=== PATIENT | female | born 1955 | race Caucasian/White ===

== ENCOUNTER 2018-07-22 02:58 | Inpatient (IN) ==
[2018-07-22] MEDS ORDERED: Nitroglycerin Drip Premix 50 MG/250 ML BOTTLE IV.CONT PRN (03:11)
[2018-07-22] MEDS ORDERED: Nitroglycerin Drip Premix 50 MG/250 ML BOTTLE ONE (03:12)
[2018-07-22 03:52] LABS: Baso # (Auto) 0.1 th/mm3 (0.0-0.2); Baso % (Auto) 0.9 % (0.0-2.0); Eos # (Auto) 0.3 th/mm3 (0.0-0.4); Eos % (Auto) 3.6 % (0.0-4.0); Hematocrit 37.9 % (35.0-46.0); Hemoglobin 12.6 gm/dL (11.6-15.3); Lymph # (Auto) 2.6 th/mm3 (1.0-4.8); Lymph % (Auto) 27.6 % (9.0-44.0); Mean Corpuscular HGB Conc 33.3 % (32.0-36.0); Mean Corpuscular Hemoglobin 27.5 pg (27.0-34.0); Mean Corpuscular Volume 82.8 fL (80.0-100.0); Mono # (Auto) 0.8 th/mm3 (0.0-0.9); Mono % (Auto) 8.2 % (0.0-8.0); Neut # (Auto) 5.7 th/mm3 (1.8-7.7); Neut % (Auto) 59.7 % (16.0-70.0); Platelet Count 267 th/mm3 (150-450); Red Blood Count 4.58 mil/mm3 (4.00-5.30); Red Cell Distribution Width 16.1 % (11.6-17.2); White Blood Count 9.5 th/mm3 (4.0-11.0)
--- NOTE | 2018-07-22 04:05 | XR ---
EXAM DATE: 07/22/2018 3:30 AM EDT AGE/SEX: 63 years / Female INDICATIONS: Difficulty breathing today. CLINICAL DATA: This is the patient's initial encounter. Patient reports that signs and symptoms have been present for 1 day and indicates a pain score of 0/10. MEDICAL/SURGICAL HISTORY: None. . Stents COMPARISON: [facility] [place], CHEST PA & LAT, 11/18/2015. . FINDINGS: Frontal view of the chest shows interval development of some interstitial prominence and haziness. Pe rsistent cardiomegaly. No confluent infiltrate or effusion. Spinal stimulator projects over the junct ion of the mid and lower dorsal spine. Osseous structures are otherwise intact CONCLUSION: Spectrum of findings characteristic of some degree of vascular congestion or volume overload. No conf luent infiltrate. Electronically signed by: Yonatan Mulligan MD 07/22/2018 4:03 AM EDT
--- NOTE | 2018-07-22 04:08 | ED ---
HPI General Chief Complaint: Shortness of Breath/Dyspnea Stated Complaint: Diff breathing Time Seen by Provider: 07/22/18 03:11 Source: patient and family Mode of arrival: wheelchair Limitations: other (Acute respiratory failure) History of Present Illness Patient awoke this morning from bed with severe shortness of breath. In route she feels that her respiratory distress worsened. She has chest tightness throughout her entire chest. She has been coughing for weeks and this cough is productive of yellow phlegm. She denies having a history of heart failure. History limited by patient's severe respiratory distress. MD Complaint: shortness of breath, cough and chest pain Onset (ago): hour(s) Context: recent illness Severity: severe Relieving factors: oxygen and upright position Associated symptoms: cough Related Data Home oxygen amount: other (BiPAP) Allergies Allergy/AdvReac Type Severity Reaction Status Date / Time diphenhydramine Allergy Severe RESP Unverified 07/22/18 03:04 DISTRESS penicillin G Allergy Severe DYSPNEA, Unverified 07/22/18 03:04 EDEMA lovastatin Allergy Intermediate MUSCLE Unverified 07/22/18 03:04 PROBLEMS diatrizoate meglumine Allergy Mild Hives Unverified 07/22/18 03:04 gadobenic acid Allergy Mild Hives Unverified 07/22/18 03:04 gadodiamide Allergy Mild Hives Unverified 07/22/18 03:04 gadoteridol Allergy Mild Hives Unverified 07/22/18 03:04 iodixanol Allergy Mild Hives Unverified 07/22/18 03:04 iohexol Allergy Mild Hives Unverified 07/22/18 03:04 STATINS AdvReac Intermediate MUSCLE Uncoded 07/22/18 03:04 ACHES Review of Systems ROS Unobtainable ROS Unobtainable: other (Acute respiratory failure) [facility] Medical History Medical History Angioma (Acute) Diabetes (Acute) Hypertension (Acute) Hypothyroid (Acute) Surgical History Surgical History H/O heart artery stent (Acute) H/O: knee surgery (Acute) Social History Social History Substance History: No History of Abuse Smoking Status: Former smoker How Often Do You Have a Drink Containing Alcohol: Monthly or less Recent Travel in [facility] within the Last 8 Weeks: No Recent Out of Country Travel within the Last 8 Weeks: No Immunization History Tetanus Immunization: Unsure Exam Narrative Exam Narrative: GENERAL: 63-year-old female sitting upright in wheelchair in acute respiratory distress. SKIN: Slightly moist to touch but warm. HEAD: Atraumatic. Normocephalic. EYES: Pupils equal and round. No scleral icterus. No injection or drainage. ENT: No nasal bleeding or discharge. Mucous membranes pink and moist. NECK: Trachea midline. No stridor CARDIOVASCULAR: Tachycardia, normal rhythm rhythm. No murmur appreciated. RESPIRATORY: Accessory muscle use and tripoding observed. Course Rales throughout both lung garcia. GASTROINTESTINAL: Abdomen soft, non-tender, nondistended. Hepatic and splenic margins not palpable. MUSCULOSKELETAL: No obvious deformities. No clubbing. No cyanosis. No significant lower extremity edema. NEUROLOGICAL: Awake and alert. No obvious cranial nerve deficits. Motor grossly within normal limits. Normal speech. PSYCHIATRIC: Agitated mood and anxious affect. Related to patient's respiratory distress. Course Reevaluation(s) Reevaluation #1: Patient much improved after treatment with BiPAP and nitroglycerin drip. De La Cruz catheter inserted for strict maintenance of intake and output. at bedside with patient at this time. Updated patient and on plan. Awaiting lab results for admission. Time: 04:05 Consultations Consultation #1: Spoke with Dr. Gould regarding the patient's case. She will come the ED in order to evaluate patient and admit her for further evaluation and treatment. Initial Documented Vital Signs Temperature 96.8 F L 07/22/18 03:05 Pulse Rate 101 H 07/22/18 03:05 Respiratory Rate 32 H 07/22/18 03:05 Blood Pressure 277/137 H 07/22/18 03:05 Pulse Oximetry 83 L 07/22/18 03:05 Last Documented Vital Signs Temperature 96.8 F L 07/22/18 03:05 Pulse Rate 88 07/22/18 03:51 Respiratory Rate 20 07/22/18 03:51 Blood Pressure 264/137 H 07/22/18 03:51 Pulse Oximetry 98 07/22/18 03:51 Critical Care Time Critical Care Time: Yes Total Critical Care Time: 50 Attestation: This time was spent either directly patient's bedside directing care and evaluating patient or discussing with consultants were entering orders and reviewing. This special care was necessary in order to treat the patient's acute respiratory failure. Without focused in intensive evaluation and care patient's condition was likely to deteriorate. Medical Decision Making MDM Narrative Medical decision making narrative: 63-year-old female presenting in acute respiratory distress. Per discussion with and review of medical records she has no prior history of heart failure or renal failure. Episode seems most consistent with acute exacerbation of heart failure. Will consider PE less likely an acute CHF; patient is also allergic to IV contrast dye and therefore be difficult to evaluate for PE. Feel the pneumonia is less likely given the bilateral pulmonary edema observed on the patient's chest x-ray. Initiated treatment immediately with BiPAP and intravenous nitroglycerin drip. Will observe patient closely in the ED. Plan for admission to ICU for further treatment and workup. Also ordered patient initial dose 40 mg IV Lasix for diuresis. Will patient was in her initially agitated state due to acute respiratory distress I requested the nurses draw ketamine but we ended up not requiring this medication. Medical Screen Exam Complete: Yes Emergency Medical Condition: Yes Differential Diagnosis Differential Diagnosis: Acute CHF versus acute renal failure versus volume overload versus inferior wall IA versus diffuse metastatic disease. Lab Data Result diagrams: 07/22/18 03:40 07/22/18 03:40 Lab Results 07/22/18 07/22/18 07/22/18 Range/Units 03:40 03:40 03:40 WBC 9.5 (4.0-11.0) th/mm3 RBC 4.58 (4.00-5.30) mil/mm3 Hgb 12.6 (11.6-15.3) gm/dL Hct 37.9 (35.0-46.0) % MCV 82.8 (80.0-100.0) fL MCH 27.5 (27.0-34.0) pg MCHC 33.3 (32.0-36.0) % RDW 16.1 (11.6-17.2) % Plt Count 267 (150-450) th/mm3 MPV 9.0 (7.0-11.0) fL Neut % (Auto) 59.7 (16.0-70.0) % Lymph % (Auto) 27.6 (9.0-44.0) % Travis % (Auto) 8.2 H (0.0-8.0) % Eos % (Auto) 3.6 (0.0-4.0) % Baso % (Auto) 0.9 (0.0-2.0) % Neut # (Auto) 5.7 (1.8-7.7) th/mm3 Lymph # (Auto) 2.6 (1.0-4.8) th/mm3 Travis # (Auto) 0.8 (0.0-0.9) th/mm3 Eos # (Auto) 0.3 (0.0-0.4) th/mm3 Baso # (Auto) 0.1 (0.0-0.2) th/mm3 WBC Differential . Differential Comment Auto diff final PT 10.3 (9.8-11.6) sec INR 1.0 Ratio Puncture Site Patient Temperature O2 Saturation (90-100) % ABG pH (7.380-7.420) ABG pCO2 (38-42) mmHg ABG pO2 (61-120) mmHg ABG HCO3 (22-26) mmol/L ABG O2 Content (12.0-20.0) Vol % ABG Base Excess (-2-2) mmol/L ABG Methemoglobin (0-2) % Evert Test Hemoglobin (12.0-16.0) G/DL Carboxyhemoglobin (0-4) % O2 Delivery Device Vent Setting Inspired O2 % Critical Value Sodium 140 (136-145) meq/L Potassium 3.9 (3.5-5.1) meq/L Chloride 105 (98-107) meq/L Carbon Dioxide 26.4 (21.0-32.0) meq/L Anion Gap 9 (5-15) meq/L BUN 20 H (7-18) mg/dL Creatinine 0.94 (0.50-1.00) mg/dL Estimated GFR 60 L (>89) mL/min Random Glucose 217 H (74-106) mg/dL Calcium 8.7 (8.5-10.1) mg/dL Magnesium 1.8 (1.5-2.5) mg/dL Total Bilirubin 0.5 (0.2-1.0) mg/dL AST 25 (15-37) U/L ALT 17 (10-53) U/L Alkaline Phosphatase 118 H (45-117) U/L Troponin I Less than 0.02 L (0.02-0.05) ng/mL B-Natriuretic Peptide (0-100) pg/mL Total Protein 7.8 (6.4-8.2) g/dL Albumin 3.4 (3.4-5.0) g/dL 07/22/18 07/22/18 Range/Units 03:40 03:50 WBC (4.0-11.0) th/mm3 RBC (4.00-5.30) mil/mm3 Hgb (11.6-15.3) gm/dL Hct (35.0-46.0) % MCV (80.0-100.0) fL MCH (27.0-34.0) pg MCHC (32.0-36.0) % RDW (11.6-17.2) % Plt Count (150-450) th/mm3 MPV (7.0-11.0) fL Neut % (Auto) (16.0-70.0) % Lymph % (Auto) (9.0-44.0) % Travis % (Auto) (0.0-8.0) % Eos % (Auto) (0.0-4.0) % Baso % (Auto) (0.0-2.0) % Neut # (Auto) (1.8-7.7) th/mm3 Lymph # (Auto) (1.0-4.8) th/mm3 Travis # (Auto) (0.0-0.9) th/mm3 Eos # (Auto) (0.0-0.4) th/mm3 Baso # (Auto) (0.0-0.2) th/mm3 WBC Differential Differential Comment PT (9.8-11.6) sec INR Ratio Puncture Site Left radial Patient Temperature 98.6 O2 Saturation 92 (90-100) % ABG pH 7.36 L (7.380-7.420) ABG pCO2 43 H (38-42) mmHg ABG pO2 74 (61-120) mmHg ABG HCO3 23 (22-26) mmol/L ABG O2 Content 16.2 (12.0-20.0) Vol % ABG Base Excess -1.2 (-2-2) mmol/L ABG Methemoglobin 0.7 (0-2) % Evert Test Present Hemoglobin 12.5 (12.0-16.0) G/DL Carboxyhemoglobin 1.2 (0-4) % O2 Delivery Device Bipap Vent Setting Ipap=12 epap=6 Inspired O2 35 % Critical Value No Sodium (136-145) meq/L Potassium (3.5-5.1) meq/L Chloride (98-107) meq/L Carbon Dioxide (21.0-32.0) meq/L Anion Gap (5-15) meq/L BUN (7-18) mg/dL Creatinine (0.50-1.00) mg/dL Estimated GFR (>89) mL/min Random Glucose (74-106) mg/dL Calcium (8.5-10.1) mg/dL Magnesium (1.5-2.5) mg/dL Total Bilirubin (0.2-1.0) mg/dL AST (15-37) U/L ALT (10-53) U/L Alkaline Phosphatase (45-117) U/L Troponin I (0.02-0.05) ng/mL B-Natriuretic Peptide 325 H (0-100) pg/mL Total Protein (6.4-8.2) g/dL Albumin (3.4-5.0) g/dL Imaging Data Radiologist's impression: Chest X-Ray 07/22/18 03:14 CONCLUSION: Spectrum of findings characteristic of some degree of vascular congestion or volume overload. No confluent infiltrate. ECG Data Attestation: I personally reviewed and interpreted this ECG as follows: Interpretation: Rate 93 normal sinus rhythm with regular P waves, QRS consistent with LVH, some ST depression in V5 and V6, as well as aVF lead to, no significant ST elevation, not consistent with STEMI. Discharge Plan Discharge Disposition Patient Disposition: 30 Still Patient Discharge Condition Condition: Serious Discharge Details Diagnosis: Acute CHF, Respiratory failure, Hypertensive emergency Physicians Team ED Provider: Eliot Hernandez Discharge Interventions Interventions: Vital Signs Last Done: 07/22/18 04:35 Status ED Status: With Doctor
[2018-07-22 04:10] LABS: Alkaline Phosphatase 118 U/L (45-117); Prothrombin Time 10.3 sec (9.8-11.6); Total Protein 7.8 g/dL (6.4-8.2)
[2018-07-22 04:10] LABS: ABG Base Excess -1.2 mmol/L (-2-2); ABG PCO2 43 mmHg (38-42); ABG PO2 74 mmHg (61-120)
[2018-07-22 04:12] LABS: Alanine Aminotransferase 17 U/L (10-53); Albumin 3.4 g/dL (3.4-5.0); Anion Gap 9 meq/L (5-15); Aspartate Aminotransferase 25 U/L (15-37); Blood Urea Nitrogen 20 mg/dL (7-18); Calcium 8.7 mg/dL (8.5-10.1); Carbon Dioxide 26.4 meq/L (21.0-32.0); Chloride 105 meq/L (98-107); Glomerular Filtration Rate 60 mL/min (>89); Glucose,Random 217 mg/dL (74-106); Magnesium 1.8 mg/dL (1.5-2.5); Potassium 3.9 meq/L (3.5-5.1); Sodium 140 meq/L (136-145)
[2018-07-22] MEDS ORDERED: Lisinopril 10 MG Tablet PO SCH (05:15)
--- NOTE | 2018-07-22 05:17 | P.HPCC ---
History of Present Illness Service: Critical care medicine Primary Care Physician: Afshin Rainey MD, PhD Chief Complaint: SOB History of Present Illness: 63-year-old female with past medical history of coronary artery disease with prior PTCA and stent Circ and RCA 05/11/14, poorly controlled DM, HTN, HLD, hypothyroidism, prior breast cancer status post lumpectomy and radiation 2005, prior meningioma resection 1984, who presented to [facility] emergency department with shortness of breath. She states she awoke from sleep with throbbing headache, top of head without neck pain, stiffness or visual changes. She took two ibuprofen. She states she then became short of breath with associated chest pressure in her mid chest ( nonradiating, nonpleuritic, similar quality to when she had prior stents), nausea, diaphoresis. She was brought by private vehicle and arrived with sats 82% on room air, bilateral rales, tachypneic and in obvious distress. She was placed on BiPAP 12/5 35%. She was started on nitroglycerin drip which is currently running at 50 mcg/min with BP 220s/90s. CXR demonstrated cardiomegaly and vascular congestion. She was given Lasix 40 mg IV and has diuresed 600 mL, states SOB is better and will trial off Bipap. She initially said her headache was gone, now says it is returning somewhat. She has intermittently had coughing every few months and has been prescribed antibiotics from her primary. No prior diagnosis of CHF or COPD, no prior PFTs. She states she had some cough this evening, productive of clear/white frothy sputum. No fever. Troponin negative. EKG no STEMI. No cardiac workup in many years and no reported history of CHF. She has noticed leg swelling for about a week, has been taking lasix, also drinking about a gallon of water daily "to be healthy" after stopping soda. No travel. Inpatient Certification: I certify that the inpatient services were ordered in accordance with Medicare regulations governing the order. This includes certification that hospital inpatient services are reasonable and necessary and in the case of services not specified as inpatient-only under 42 CFR 419.22(n), that they are appropriately provided as inpatient services in accordance to with the 2-midnight benchmark under 43 CFR 412.3(e) Review of Systems All other systems reviewed negative except as stated in HPI Allergic/Immunologic: Denies hives, Denies itchy eyes PMFSH - History History Provided By: Patient - Medical History Medical History: Medical History (Last Updated 07/22/18 @ 06:07 by Naa Gould MD) Benign meningioma of brain Breast cancer Diabetes H/O: hysterectomy Hypertension Hypothyroid Mass of vulva Obesity Spinal cord stimulator status - Surgical History Surgical History: Surgical History (Last Updated 07/22/18 @ 06:06 by Naa Gould MD) H/O arthroscopy of right knee H/O heart artery stent H/O tubal ligation H/O: knee surgery History of arthroplasty of right knee Hx of appendectomy Hx of thyroidectomy S/P laminectomy with spinal fusion S/P lumpectomy, right breast - Family History Family History: Family History (Last Updated 07/22/18 @ 06:07 by Naa Gould MD) Father CAD (coronary artery disease) - Tobacco History Smoking Status: Former smoker Tobacco Type: Cigarettes Packs Per Day: 0.5 Years Smoked: 20 Smoking End Date: - Alcohol History How Often Do You Have a Drink Containing Alcohol: Monthly or less - Substance Use History Substance History: No History of Abuse - Travel History Recent Travel in the [place] Within the Last 8 Weeks: No Recent Travel Out of the Country Within the Last 8 Weeks: No - Immunization History Tetanus Immunization: Unsure Medications and Allergies Active Medications: Active Medications Atenolol (Tenormin) 100 mg PO DAILY ALEXANDRA Furosemide (Lasix Inj) 40 mg IV.PUSH DAILY ALEXANDRA Nitroglycerin/Dextrose (Nitroglycerin Drip Premix) 50 mg in 250 mls @ 0 mls/hr IV.CONT TITRATE PRN; Protocol PRN Reason: Per Protocol Last Titration: 07/22/18 05:06 Dose: 60 mcg/min, 18 mls/hr Lisinopril (Prinivil) 10 mg PO BID ALEXANDRA Sodium Chloride (Ns Flush) 2 ml IV.FLUSH PRN PRN PRN Reason: FLUSH AFTER USING IV ACCESS Vitamin D (Vitamin D3) 2,000 unit PO DAILY ALEXANDRA Allergies Allergy/AdvReac Type Severity Reaction Status Date / Time diphenhydramine Allergy Severe RESP Verified 07/23/18 12:33 DISTRESS penicillin G Allergy Severe DYSPNEA, Verified 07/23/18 12:33 EDEMA lovastatin Allergy Intermediate MUSCLE Verified 07/23/18 12:33 PROBLEMS diatrizoate meglumine Allergy Mild Hives Verified 07/23/18 12:33 gadobenic acid Allergy Mild Hives Verified 07/23/18 12:33 gadodiamide Allergy Mild Hives Verified 07/23/18 12:33 gadoteridol Allergy Mild Hives Verified 07/23/18 12:33 iodixanol Allergy Mild Hives Verified 07/23/18 12:33 iohexol Allergy Mild Hives Verified 07/23/18 12:33 STATINS AdvReac Intermediate MUSCLE Uncoded 07/23/18 12:33 ACHES Home Medications Medication Instructions Recorded Confirmed Type atenolol 100 mg PO DAILY 07/22/18 07/22/18 History cholecalciferol (vitamin D3) 2,000 unit PO DAILY 07/22/18 07/22/18 History [Vitamin D3] aspirin 81 mg PO DAILY 07/23/18 07/23/18 History furosemide 20 mg PO DAILY 07/23/18 07/23/18 History glimepiride 4 mg PO BID 07/23/18 07/23/18 History levothyroxine 175 mcg PO DAILY 07/23/18 07/23/18 History lisinopril 20 mg PO BID 07/23/18 07/23/18 History Results - Labs CBC & Chem 7: 07/23/18 03:00 07/25/18 06:03 Labs: Short CBC 07/22/18 Range/Units 03:40 WBC 9.5 (4.0-11.0) th/mm3 Hgb 12.6 (11.6-15.3) gm/dL Hct 37.9 (35.0-46.0) % Plt Count 267 (150-450) th/mm3 BMP 07/22/18 03:40 Sodium 140 Potassium 3.9 Chloride 105 Carbon Dioxide 26.4 BUN 20 H Creatinine 0.94 Calcium 8.7 Cardiac Enzymes 07/22/18 Range/Units 03:40 Troponin I Less than 0.02 L (0.02-0.05) ng/mL Liver Function 07/22/18 Range/Units 03:40 Total Bilirubin 0.5 (0.2-1.0) mg/dL AST 25 (15-37) U/L ALT 17 (10-53) U/L Alkaline Phosphatase 118 H (45-117) U/L Albumin 3.4 (3.4-5.0) g/dL - Imaging Impressions Chest X-Ray 07/22/18 03:14 CONCLUSION: Spectrum of findings characteristic of some degree of vascular congestion or volume overload. No confluent infiltrate. Exam Vital signs: Vital Signs 07/22/18 03:05 07/22/18 03:20 07/22/18 03:22 Temperature 96.8 F L Pulse Rate 101 H 91 H Respiratory Rate 32 H 20 Blood Pressure 277/137 H 256/124 H Pulse Oximetry 83 L 97 98 07/22/18 03:46 07/22/18 03:51 07/22/18 04:35 Temperature Pulse Rate 88 69 Respiratory Rate 20 20 Blood Pressure 264/137 H 220/98 H Pulse Oximetry 98 98 07/22/18 05:00 07/22/18 05:04 07/22/18 05:08 Temperature Pulse Rate 78 Respiratory Rate 20 Blood Pressure 226/104 H Pulse Oximetry 98 97 Intake & Output 07/21/18 07/21/18 07/22/18 06:59 18:59 06:59 Weight 86.183 kg Narrative: GENERAL: Well-nourished, well-developed patient sitting up, alert, conversant on Bipap. SKIN: Warm and dry. HEAD: Atraumatic. Normocephalic. EYES: Pupils equal and round. No scleral icterus. No injection or drainage. ENT: Bipap mask in place. NECK: Trachea midline. Unable to appreciate JVD. CARDIOVASCULAR: Regular rate and rhythm, sinus rhythm on the monitor with rate in the 70s. No murmurs rubs or gallops. RESPIRATORY: Tachypneic, no accessory muscle use, bibasilar rales. No wheeze. GASTROINTESTINAL: Abdomen soft, non-tender, nondistended. Bowel sounds present hepatic and splenic margins not palpable. MUSCULOSKELETAL: Extremities without clubbing, cyanosis, ~trace edema LLE, 1+ RLE, no calf tenderness(patient states this is chronic and at baseline)/ NEUROLOGICAL: Awake and alert. No obvious cranial nerve deficits. Strength 5 out of 5. Sensation intact. No meningismus. Caprini VTE Risk Assessment Caprini VTE Risk Assessment: Moderate/High Risk (score >= 2) Caprini Risk Assessment Model: Point Value = 1 Point Value = 2 Point Value = 3 Point Value = 5 Age 41-60 Minor surgery BMI > 25 kg/m2 Swollen legs Varicose veins or History of unexplained or recurrent spontaneous Oral contraceptives or hormone replacement Sepsis (< 1 month) Serious lung disease, including pneumonia (< 1 month) Abnormal pulmonary function Acute myocardial infarction Congestive heart failure (< 1 month) History of inflammatory bowel disease Medical patient at bed rest Age 61-74 Arthroscopic surgery Major open surgery (> 45 min) Laparoscopic surgery (> 45 min) Malignancy Confined to bed (> 72 hours) Immobilizing plaster cast Central venous access Age >= 75 History of VTE Family history of VTE Factor V Leiden Prothrombin [id number] Lupus anticoagulant Anticardiolipin antibodies Elevated serum homocysteine Heparin-induced thrombocytopenia Other congenital or acquired thrombophilia Stroke (< 1 month) Elective arthroplasty Hip, pelvis, or leg fracture Acute spinal cord injury (< 1 month) Prophylaxis Regimen: Total Risk Factor Score Risk Level Prophylaxis Regimen 0-1 Low Early ambulation 2 Moderate Order ONE of the following: *Sequential Compression Device (SCD) *Heparin 5000 units SQ BID 3-4 Higher Order ONE of the following medications: *Heparin 5000 units SQ TID *Enoxaparin/Lovenox 40 mg SQ daily (WT < 150 kg, CrCl > 30 mL/min) *Enoxaparin/Lovenox 30 mg SQ daily (WT < 150 kg, CrCl > 10-29 mL/min) *Enoxaparin/Lovenox 30 mg SQ BID (WT < 150 kg, CrCl > 30 mL/min) AND/OR *Sequential Compression Device (SCD) 5 or more Highest Order ONE of the following medications: *Heparin 5000 units SQ TID (Preferred with Epidurals) *Enoxaparin/Lovenox 40 mg SQ daily (WT < 150 kg, CrCl > 30 mL/min) *Enoxaparin/Lovenox 30 mg SQ daily (WT < 150 kg, CrCl > 10-29 mL/min) *Enoxaparin/Lovenox 30 mg SQ BID (WT < 150 kg, CrCl > 30 mL/min) AND *Sequential Compression Device (SCD) Assessment and Plan - Assessment and Plan Plan: NEURO: Headache History of meningioma resection (1984) Spinal stimulator in place History post L5-S1 laminectomy and fusion Headache and hypertensive emergency. No neuro changes. F/u CT brain. Lortab prn. RESP: Acute hypoxemic respiratory failure requiring BiPAP Pulmonary edema Former tobacco abuse Pulmonary edema with hypertensive emergency. NTG drip, Bipap prn and now will trial NC. Received Lasix 40 mg IV, additional 40 mg IV q12. She does not carry diagnosis of COPD and has not been on bronchodilators in the past. Not wheezing. CV: CAD with stents 2013 Hypertensive emergency Chest pain Pulmonary edema HLD HTN Continue NTG drip titrate for SBP <140/90 Lisinopril 10 mg po bid. Vasotec prn. Continue Atenolol 100 mg po daily. Intolerant to statins. Lasix 40 mg IV q12. Serial EKG and troponin ASA if head CT negative F/u echo. Consider cardiology consult for eventual ischemic workup given multiple risk factors, known CAD. Prior Echo 05/12/14 EF 55-60%, mild MR, +LVH GI: Obesity cardiac diet. FEN/RENAL: De La Cruz in place, will remain for now and monitor I/O hourly while lowering BP. Vitamin D 2000 units p.o. daily ID: No current e/o infection. HEME: RLE swelling No acute hematologic issues f/u RLE u/s. ENDO: Diabetes mellitus Hold glimepiride. Monitor bedside glucose before meals at bedtime and administer low-dose insulin sliding scale as indicated. Hypothyroidism Check TSH and if appropriate continue Synthroid 150 mcg p.o. daily (I verified home dose with patient) PROPH: Famotidine for stress ulcer prophylaxis. Initiate Lovenox for DVT prophylaxis as long as head CT is negative. ACCESS: Peripheral IV providing adequate access at this time. FULL CODE Level 3 H and P. Followed up in evening. She is off NTG. BP improved and denies chest pain.
[2018-07-22] MEDS ORDERED: Bisacodyl 10 MG Supp RECTAL PRN (05:28)
[2018-07-22 05:47] LABS: Amphetamine Screen,Urine Neg (Neg); Barbiturate Screen,Urine Neg (Neg); Cannabinoid Screen,Urine Neg (Neg); Cocaine Screen,Urine Neg (Neg)
[2018-07-22 05:48] LABS: Opiate Screen,Urine Pos (Neg)
[2018-07-22] MEDS ORDERED: Dextrose 50% in Water 50 ML Vial IV.PUSH PRN (08:29)
[2018-07-22] MEDS: Lisinopril 10 MG Tablet PO SCH ×2 (09:00→22:31)
[2018-07-22] MEDS: Senna/Docusate Sodium 8.6/50 MG Tablet PO SCH (09:00)
[2018-07-22] MEDS: Famotidine 20 MG Tablet PO SCH ×2 (09:00→22:31)
--- NOTE | 2018-07-22 09:03 | US ---
EXAM DATE: 07/22/2018 8:56 AM EDT AGE/SEX: 63 years / Female INDICATIONS: Bilateral lower extremity edema. CLINICAL DATA: This is the patient's initial encounter. Patient reports that signs and symptoms have been present for 1 week and indicates a pain score of 0/10. MEDICAL/SURGICAL HISTORY: Cardiovascular disease. Diabetes. Hypertension. Hyperlipidemia. H ypothyroidism. Breast cancer. Benign meningioma of the brain. Vulva mass. Obesity. Coronary leslie ry stent. Hysterectomy. Tubal ligation. Appendectomy. Laminectomy with spinal fusion. Right ag[address]ina st lumpectomy. Arthroscopy and arthroplasty of the right knee. COMPARISON: No prior exams available for comparison. TECHNIQUE: Venous ultrasound of both lower extremities was performed from the inguinal ligament to t he proximal calf. Real-time, color Doppler and spectral tracing, compression and augmentation techni ques were used. FINDINGS: Right Leg: Normal compression of the deep venous system from the inguinal region to the proximal alysia f. No echogenic clot is seen. Normal response of the venous system to augmentation and respiration. Left Leg: Normal compression of the deep venous system from the inguinal region to the proximal calf . No echogenic clot is seen. Normal response of the venous system to augmentation and respiration. Other: 4 cm fluid collection popliteal fossa on the left CONCLUSION: 1. Negative for deep venous thrombosis. Electronically signed by: Yossi Huang MD 07/22/2018 9:01 AM EDT
[2018-07-22] MEDS: Atenolol 100 MG Tablet PO SCH (09:21)
[2018-07-22] MEDS: Insulin NovoLIN Regular Correctional Sugar Inj SQ SCH ×2 (14:54→17:00)
--- NOTE | 2018-07-22 18:28 | ECHRPT ---
Indication: SHORTNESS OF BREATH CONCLUSIONS Technically very difficult study making assessment of left ventricular function and wall motion very suboptimal. Normal left ventricular size. Wall thickness is normal. The left ventricular systolic function appears low normal with ejection fraction very roughly estima flor at 50%. Regional wall motion abnormalities cannot be excluded on the basis of this study. There is trace tricuspid valve regurgitation. The estimated pulmonary arterial pressure is 38 mmHg. Trace mitral valve regurgitation. BP: / HR: Rhythm: Sinus MEASUREMENTS (Male / Female) Normal Values Technical Quality:Fair 2D ECHO LV Diastolic Diameter PLAX 5.5 cm 4.2 - 5.9 / 3.9 - 5.3 cm LV Systolic Diameter PLAX 4.8 cm IVS Diastolic Thickness 0.9 cm 0.6 - 1.0 / 0.6 - 0.9 cm LVPW Diastolic Thickness 0.9 cm 0.6 - 1.0 / 0.6 - 0.9 cm LV Relative Wall Thickness 0.3 RV Internal Dim ED PLAX 2.9 cm LVOT Diameter 2.0 cm Aortic Root Diameter 3.1 cm LA Systolic Diameter LX 2.8 cm 3.0 - 4.0 / 2.7 - 3.8 cm M-MODE AV Cusp Separation MM 2.0 cm DOPPLER AV Peak Velocity 141.0 cm/s AV Peak Gradient 8.0 mmHg AV Mean Gradient 5.0 mmHg AV Velocity Time Integral 33.7 cm LVOT Peak Velocity 77.7 cm/s LVOT Peak Gradient 2.4 mmHg LVOT Velocity Time Integral 16.5 cm AV Area Cont Eq vti 1.5 cm AV Area Cont Eq pk 1.7 cm LV E' Lateral Velocity 6.5 cm/s LV E' Septal Velocity 4.0 cm/s TR Peak Velocity 266.0 cm/s TR Peak Gradient 28.3 mmHg Right Atrial Pressure 10.0 mmHg Pulmonary Artery Systolic Pressu 38.3 mmHg Right Ventricular Systolic Press 38.3 mmHg PV Peak Velocity 95.2 cm/s PV Peak Gradient 3.6 mmHg FINDINGS LEFT VENTRICLE Technically very difficult study making assessment of left ventricular function and wall motion very suboptimal. Normal left ventricular size. Wall thickness is normal. The left ventricular systolic function is low normal with an estimated ejection fraction of 50%. Re gional wall motion abnormalities cannot be excluded on the basis of this study. RIGHT VENTRICLE Normal right ventricular size and systolic function. LEFT ATRIUM The left atrial size is normal. RIGHT ATRIUM The right atrial size is normal. ATRIAL SEPTUM No atrial level shunt is demonstrated by color flow Doppler interrogation. AORTA The aortic root and proximal ascending aorta are normal in size on limited imaging. MITRAL VALVE Trace mitral valve regurgitation. AORTIC VALVE Trileaflet aortic valve. No aortic valve stenosis or regurgitation. TRICUSPID VALVE There is trace tricuspid valve regurgitation. The estimated pulmonary arterial pressure is 38 mmHg. PULMONARY VALVE No pulmonary valve regurgitation or stenosis. VESSELS The inferior vena cava is normal in size. PERICARDIUM No pericardial effusion. John Jamil MD (Electronically Signed) Final Date:22 July 2018 18:27
--- NOTE | 2018-07-22 21:46 | CT ---
EXAM DATE: 07/22/2018 9:38 PM EDT AGE/SEX: 63 years / Female INDICATIONS: Generalized weakness. CLINICAL DATA: This is the patient's initial encounter. Patient reports that signs and symptoms have been present for 1 day and indicates a pain score of 0/10. MEDICAL/SURGICAL HISTORY: Carcinoma, breast. Diabetes. Hypertension. Hysterectomy. Tubal ligatio n. RADIATION DOSE: 56.35 CTDI (mGy) COMPARISON: No prior exams available for comparison. TECHNIQUE: CT of the head without contrast. Using automated exposure control and adjustment of the mA and/or kV according to patient size, radiation dose was kept as low as reasonably achievable to ob tain optimal diagnostic quality images. DICOM format image data is available electronically for revi ew and comparison. FINDINGS: Cerebrum: The ventricles are normal for age. No evidence of midline shift, mass lesion, hemorrhage or acute infarction. Lacunar infarct along the body of the right lateral ventricle. There is good gra y-white matter differentiation. No extraaxial fluid collections are seen. Posterior Fossa: The cerebellum and brainstem are intact. The 4th ventricle is midline. The cerebe llopontine angle is unremarkable. Extracranial: The visualized portion of the orbits is intact. Skull: Prior right frontal craniotomy with removal of a portion of the frontal bone. There is an abn ormal appearance to the soft tissues at the craniotomy site with numerous small collections of gas. N o epidural impression seen in the unroofed portion. CONCLUSION: 1. No acute findings in the brain. 2. Abnormal appearance to the right frontal craniotomy site with multiple small collections of gas i n the soft tissues of the unroofed frontal calvarium. This is of uncertain significance and, without prior studies to see whether this is a new or old finding. Correlate with clinical exam to see if the re is evidence of infection in this region. . Electronically signed by: Emery Ochoa MD 07/22/2018 9:44 PM EDT
[2018-07-22] MEDS: amLODIPine 5 MG Tablet PO SCH (22:36)
[2018-07-23] MEDS ORDERED: Chlorhexidine Gluconate 2% 1 Pack (2 Cloths) TOPICAL PRN (04:00)
[2018-07-23 05:29] LABS: Baso # (Auto) 0.1 th/mm3 (0.0-0.2); Baso % (Auto) 1.1 % (0.0-2.0); Eos # (Auto) 0.1 th/mm3 (0.0-0.4); Eos % (Auto) 1.5 % (0.0-4.0); Hematocrit 36.2 % (35.0-46.0); Lymph # (Auto) 1.5 th/mm3 (1.0-4.8); Lymph % (Auto) 17.3 % (9.0-44.0); Mean Corpuscular Volume 81.8 fL (80.0-100.0); Mean Platelet Volume 8.6 fL (7.0-11.0); Mono # (Auto) 0.5 th/mm3 (0.0-0.9); Mono % (Auto) 6.3 % (0.0-8.0); Neut # (Auto) 6.2 th/mm3 (1.8-7.7); Neut % (Auto) 73.8 % (16.0-70.0); Platelet Count 269 th/mm3 (150-450); Red Blood Count 4.43 mil/mm3 (4.00-5.30); White Blood Count 8.4 th/mm3 (4.0-11.0)
[2018-07-23] MEDS: Senna/Docusate Sodium 8.6/50 MG Tablet PO SCH ×3 (05:56→22:28)
[2018-07-23] MEDS: Chlorhexidine Gluconate 2% 1 Pack (2 Cloths) TOPICAL SCH (05:56)
[2018-07-23] MEDS: Insulin NovoLIN Regular Correctional Sugar Inj SQ SCH ×8 (05:56→23:47)
[2018-07-23 06:02] LABS: Calcium 8.7 mg/dL (8.5-10.1); Carbon Dioxide 30.9 meq/L (21.0-32.0); Magnesium 1.5 mg/dL (1.5-2.5); Phosphorus 3.9 mg/dL (2.5-4.9)
[2018-07-23 06:08] LABS: Potassium 2.7 meq/L (3.5-5.1)
[2018-07-23] MEDS: Levothyroxine 150 MCG Tablet PO SCH (06:19)
--- NOTE | 2018-07-23 09:51 | P.PNIM ---
Subjective Interval history: not sob lying in bed. feels much better crampy legs. Physical Exam Vital signs: Vital Signs 07/22/18 10:00 07/22/18 10:01 07/22/18 10:30 Temperature Pulse Rate 55 L 55 L 64 Respiratory Rate 16 16 18 Blood Pressure 178/78 H 179/84 H Pulse Oximetry 97 98 99 07/22/18 11:00 07/22/18 11:06 07/22/18 11:16 Temperature Pulse Rate 63 61 53 L Respiratory Rate 20 23 25 H Blood Pressure 200/88 H 196/91 H 178/83 H Pulse Oximetry 100 100 99 07/22/18 11:30 07/22/18 11:45 07/22/18 12:00 Temperature 98.5 F Pulse Rate 58 L 56 L 55 L Respiratory Rate 25 H 27 H 22 Blood Pressure 158/75 H 157/78 H 158/78 H Pulse Oximetry 98 98 99 07/22/18 12:15 07/22/18 12:30 07/22/18 12:31 Temperature Pulse Rate 54 L 57 L 57 L Respiratory Rate 24 23 16 Blood Pressure 168/73 H 166/77 H Pulse Oximetry 96 100 100 07/22/18 12:45 07/22/18 13:00 07/22/18 13:15 Temperature Pulse Rate 64 60 65 Respiratory Rate 22 30 H 26 H Blood Pressure 193/87 H 179/71 H 185/72 H Pulse Oximetry 99 98 99 07/22/18 13:30 07/22/18 13:45 07/22/18 14:00 Temperature Pulse Rate 65 62 61 Respiratory Rate 19 23 32 H Blood Pressure 156/70 H 149/65 H 148/68 H Pulse Oximetry 97 98 97 07/22/18 14:15 07/22/18 14:31 07/22/18 14:45 Temperature Pulse Rate 59 L 62 58 L Respiratory Rate 29 H 24 23 Blood Pressure 156/73 H 169/77 H 162/76 H Pulse Oximetry 97 99 98 07/22/18 15:00 07/22/18 15:15 07/22/18 15:27 Temperature Pulse Rate 57 L 55 L 57 L Respiratory Rate 28 H 27 H 16 Blood Pressure 192/77 H 173/77 H Pulse Oximetry 98 99 07/22/18 15:31 07/22/18 15:45 08/24/18 16:00 Temperature 98.5 F Pulse Rate 59 L 62 67 Respiratory Rate 19 27 H 32 H Blood Pressure 149/65 H 175/73 H 186/84 H Pulse Oximetry 100 96 98 07/22/18 16:15 07/22/18 16:30 07/22/18 16:45 Temperature Pulse Rate 65 62 66 Respiratory Rate 32 H 31 H 30 H Blood Pressure 172/81 H 175/82 H 179/81 H Pulse Oximetry 98 97 100 07/22/18 20:00 07/22/18 22:08 07/23/18 00:00 Temperature 98.4 F 98.2 F Pulse Rate 63 64 71 Respiratory Rate 16 18 16 Blood Pressure 150/70 H 115/57 L Pulse Oximetry 96 95 98 07/23/18 04:00 Temperature 98.9 F Pulse Rate 66 Respiratory Rate 16 Blood Pressure 109/55 L Pulse Oximetry 95 Intake & Output 07/22/18 07/23/18 07/23/18 18:59 06:59 18:59 Intake Total 1800 / 1800 400 / 400 250 / 250 Output Total 5600 / 5600 4820 / 4820 700 / 700 Balance -3800 / -3800 -4420 / -4420 -450 / -450 Intake: Oral 1800 / 1800 400 / 400 250 / 250 Output: Urine 3000 / 3000 4500 / 4500 Urine Amount (Catheter) 2600 / 2600 320 / 320 700 / 700 Indwelling Urethral Catheter 2600 / 2600 320 / 320 700 / 700 heart reg lung cta abd s/nt ext no edema - Urinary Catheter Management Indwelling Urethral Catheter Cath placed during this visit: yes Reason for continuing: Hourly intake/output Insertion date: 07/22/18 Insertion time: 03:33 Results - Labs CBC & Chem 7: 07/23/18 03:00 07/23/18 03:00 Laboratory Results - last 24 hr 07/22/18 07/22/18 07/22/18 06:20 10:30 10:56 WBC RBC Hgb Hct MCV MCH MCHC RDW Plt Count MPV Neut % (Auto) Lymph % (Auto) Moody % (Auto) Eos % (Auto) Baso % (Auto) Neut # (Auto) Lymph # (Auto) [place] # (Auto) Eos # (Auto) Baso # (Auto) WBC Differential Differential Comment Sodium Potassium Chloride Carbon Dioxide Anion Gap BUN Creatinine Estimated GFR POC Glucose Random Glucose Calcium Phosphorus Magnesium Troponin I 0.03 TSH 4.500 H Nasal Screen MRSA (PCR) Mrsa detected 07/22/18 07/22/18 07/22/18 11:37 16:24 17:00 WBC RBC Hgb Hct MCV MCH MCHC RDW Plt Count MPV Neut % (Auto) Lymph % (Auto) Moody % (Auto) Eos % (Auto) Baso % (Auto) Neut # (Auto) Lymph # (Auto) [place] # (Auto) Eos # (Auto) Baso # (Auto) WBC Differential Differential Comment Sodium Potassium Chloride Carbon Dioxide Anion Gap BUN Creatinine Estimated GFR POC Glucose 312 H 228 H Random Glucose Calcium Phosphorus Magnesium Troponin I 0.03 TSH Nasal Screen MRSA (PCR) 07/22/18 07/22/18 07/23/18 22:23 23:26 03:00 WBC 8.4 RBC 4.43 Hgb 12.0 Hct 36.2 MCV 81.8 MCH 27.0 MCHC 33.0 RDW 16.0 Plt Count 269 MPV 8.6 Neut % (Auto) 73.8 H Lymph % (Auto) 17.3 Moody % (Auto) 6.3 Eos % (Auto) 1.5 Baso % (Auto) 1.1 Neut # (Auto) 6.2 Lymph # (Auto) 1.5 Moody # (Auto) 0.5 Eos # (Auto) 0.1 Baso # (Auto) 0.1 WBC Differential . Differential Comment Auto diff final Sodium Potassium Chloride Carbon Dioxide Anion Gap BUN Creatinine Estimated GFR POC Glucose 148 H Random Glucose Calcium Phosphorus Magnesium Troponin I Less than 0.02 L TSH Nasal Screen MRSA (PCR) 07/23/18 03:00 WBC RBC Hgb Hct MCV MCH MCHC RDW Plt Count MPV Neut % (Auto) Lymph % (Auto) Moody % (Auto) Eos % (Auto) Baso % (Auto) Neut # (Auto) Lymph # (Auto) Moody # (Auto) Eos # (Auto) Baso # (Auto) WBC Differential Differential Comment Sodium 138 Potassium 2.7 L* D Chloride 95 L D Carbon Dioxide 30.9 Anion Gap 12 BUN 23 H Creatinine 1.08 H Estimated GFR 51 L POC Glucose Random Glucose 148 H Calcium 8.7 Phosphorus 3.9 Magnesium 1.5 Troponin I TSH Nasal Screen MRSA (PCR) - Imaging Impressions Head CT 07/22/18 19:13 CONCLUSION: 1. No acute findings in the brain. 2. Abnormal appearance to the right frontal craniotomy site with multiple small collections of gas in the soft tissues of the unroofed frontal calvarium. This is of uncertain significance and, without prior studies to see whether this is a new or old finding. Correlate with clinical exam to see if there is evidence of infection in this region. . Assessment and Plan - Assessment (1) Hypertensive emergency Code(s): I16.1 - Hypertensive emergency Status: Acute Plan: 1. htn emergency with acute pulmonary edema/respiratory distress. Pt admits to drinking a case of water for a cleanse diet. She began to swell up and get a h/a. She previously took lasix on prn basis but began taking 2 days prior to admission. Pt was admitted to ICU. agressively diuresed and bp brought under control. she is on 2lnc now. Transfer her back to med/surg today. replace her hypokalemia. resume home doses of her atenolol and lisinipril. monitor her bp and wean off oxygen increasing activity. will need to review her cp pharmacy records as pt reports some of her home meds not resumed including her thyroid meds. also she has dm2 and takes amaryl and was about to start metformin ER..will check dosing. possible dc home tomorrow. (2) Pulmonary edema Code(s): J81.1 - Chronic pulmonary edema Status: Acute
[2018-07-23] MEDS: Atenolol 100 MG Tablet PO SCH (10:07)
[2018-07-23] MEDS: Lisinopril 10 MG Tablet PO SCH (10:07)
[2018-07-23] MEDS: Famotidine 20 MG Tablet PO SCH ×2 (10:07→22:28)
[2018-07-23] MEDS: amLODIPine 5 MG Tablet PO SCH (10:09)
--- NOTE | 2018-07-23 11:51 | P.CONCA ---
History of Present Illness Service: [facility] cardiology Consult date: 07/23/18 Requesting Physician: Oswald Albright Reason for Consult: hypertensive emergency, dyspnea, chf Primary Care Provider: Afshin Rainey MD, PhD Chief Complaint: SOB History of Present Illness: 63-year-old lady with coronary artery disease with prior PTCA and stent Circ and RCA 05/11/14, poorly controlled DM, HTN, HLD, hypothyroidism, prior breast cancer status post lumpectomy and radiation 2005, prior meningioma resection 1984, admitted with hypertensive emergency. She states she awoke from sleep with throbbing headache, top of head without neck pain, stiffness or visual changes. She took two ibuprofen. She states she then became short of breath with associated chest pressure in her mid chest (nonradiating, nonpleuritic, similar quality to when she had prior stents), nausea, diaphoresis. She was brought by private vehicle and arrived with sats 82% on room air, bilateral rales, tachypneic and in obvious distress. She was placed on BiPAP 12/5 35%. She was treated with nitroglycerin drip for a BP 220s /90s. CXR demonstrated cardiomegaly and vascular congestion. She was given Lasix 40 mg IV bid and has diuresed 4400 mL yesterday, states SOB is better and now is off Bipap. She is now feeling well and back to baseline. She described having interval development of LE edema the past week which is now resolved following diuretic therapy since arrival. Her BP is poorly controlled as an outpatient. She reports having frequent BP measurements up to 180s "for years" on current Atenolol 100mg daily and Lisinopril 10mg daily. BP currently 137/74. Troponin negative. EKG with NSR LVH with repolarization abnormality and no acute changes. Echocardiogram was completed which was a technically difficult study but LVEF 50 % and only mild MR, no /AI, mild TR Review of Systems All other systems reviewed negative except as stated in HPI PMFSH - History History Provided By: Patient - Medical History Medical History: Medical History (Last Updated 07/22/18 @ 06:07 by Naa Gould MD) Benign meningioma of brain Breast cancer Diabetes H/O: hysterectomy Hypertension Hypothyroid Mass of vulva Obesity Spinal cord stimulator status - Surgical History Surgical History: Surgical History (Last Updated 07/22/18 @ 06:06 by Naa Gould MD) H/O arthroscopy of right knee H/O heart artery stent H/O tubal ligation H/O: knee surgery History of arthroplasty of right knee Hx of appendectomy Hx of thyroidectomy S/P laminectomy with spinal fusion S/P lumpectomy, right breast - Family History Family History: Family History (Last Updated 07/22/18 @ 06:07 by Naa Gould MD) Father CAD (coronary artery disease) - Tobacco History Second Hand Smoke Exposure: No Tobacco Use In Past 30 Days: No Smoking Status: Former smoker Tobacco Type: Cigarettes Packs Per Day: 0.5 Years Smoked: 20 Smoking End Date: - Alcohol History How Often Do You Have a Drink Containing Alcohol: Monthly or less - Substance Use History Substance History: No History of Abuse - Travel History Recent Travel in the [facility] Within the Last 8 Weeks: No Recent Travel Out of the Country Within the Last 8 Weeks: No - Immunization History Tetanus Immunization: Unsure Medications and Allergies Active Medications: Active Medications Hydrocodone Bitart/Acetaminophen ([place] 5/325) 1 tab PO Q4H PRN PRN Reason: PAIN SCALE 1 TO 5 Al Hydroxide/Mg Hydroxide (Milk Of Luci Mendez) 30 ml PO Q12H PRN PRN Reason: Mild Constipation Albuterol (Albuterol Neb (Prn)) 2.5 mg NEB Q2HR NEB PRN PRN Reason: SHORTNESS OF BREATH/WHEEZING Albuterol (Duoneb Neb (Heriberto)) 1 ampul NEB Q6HR NEB HERIBERTO Last Admin: 07/23/18 04:24 Dose: Not Given Aspirin (Aspirin Chew) 81 mg PO DAILY [facility] Last Admin: 07/23/18 10:07 Dose: 81 mg Atenolol (Tenormin) 100 mg PO DAILY [facility] Last Admin: 07/23/18 10:07 Dose: 100 mg Bisacodyl (Dulcolax Supp) 10 mg RECTAL DAILY PRN PRN Reason: SEVERE CONSITIPATION Chlorhexidine Gluconate (Chlorhexidine 2% Cloth) 3 pack TOPICAL DAILY@0400 [facility] Stop: 07/28/18 03:59 Last Admin: 07/23/18 05:56 Dose: 3 pack Chlorhexidine Gluconate (Chlorhexidine 2% Cloth) 3 pack TOPICAL DAILY@0400 PRN PRN Reason: Extra cloth needed Stop: 07/28/18 03:59 Dextrose (D50w Vial) 50 ml IV.PUSH UNSCH PRN PRN Reason: PER HYPOGLYCEMIA PROTOCOL Enalaprilat (Vasotec Inj) 2.5 mg IV.PUSH Q6H PRN PRN Reason: SBP >165 Last Admin: 07/22/18 11:16 Dose: 2.5 mg Famotidine (Pepcid) 20 mg PO BID [facility] Last Admin: 07/23/18 10:07 Dose: 20 mg Glucagon (Glucagon Inj) 1 mg OTHER PRN PRN PRN Reason: for Hypoglycemia Protocol Insulin Human Regular (Novolin R Correctional Sugar Inj) 0 units SQ Q4HR [facility]; Protocol Last Admin: 07/23/18 10:09 Dose: 5 units Lactulose (Lactulose Liq) 30 ml PO DAILY PRN PRN Reason: SEVERE CONSITIPATION Levothyroxine Sodium (Synthroid) 150 mcg PO DAILY@0600 [facility] Last Admin: 07/23/18 06:19 Dose: 150 mcg Lisinopril (Prinivil) 10 mg PO BID [facility] Last Admin: 07/23/18 10:07 Dose: 10 mg Potassium Chloride (K-Dur) 40 meq PO Q4HR [facility] Stop: 07/23/18 16:01 Last Admin: 07/23/18 11:37 Dose: 40 meq Senna/Docusate Sodium (Lucina-Colace) 1 tab PO BID [facility] Last Admin: 07/23/18 10:06 Dose: 1 tab Sennosides (Senokot) 17.2 mg PO Q12H PRN PRN Reason: Moderate Constipation Sodium Chloride (Ns Flush) 2 ml IV.FLUSH BID [facility] Last Admin: 07/23/18 10:11 Dose: 2 ml Sodium Chloride (Ns Flush) 2 ml IV.FLUSH PRN PRN PRN Reason: FLUSH AFTER USING IV ACCESS Vitamin D (Vitamin D3) 2,000 unit PO DAILY [facility] Last Admin: 07/23/18 10:06 Dose: 2,000 unit Allergies Allergy/AdvReac Type Severity Reaction Status Date / Time diphenhydramine Allergy Severe RESP Unverified 07/22/18 03:04 DISTRESS penicillin G Allergy Severe DYSPNEA, Unverified 07/22/18 03:04 EDEMA lovastatin Allergy Intermediate MUSCLE Unverified 07/22/18 03:04 PROBLEMS diatrizoate meglumine Allergy Mild Hives Unverified 07/22/18 03:04 gadobenic acid Allergy Mild Hives Unverified 07/22/18 03:04 gadodiamide Allergy Mild Hives Unverified 07/22/18 03:04 gadoteridol Allergy Mild Hives Unverified 07/22/18 03:04 iodixanol Allergy Mild Hives Unverified 07/22/18 03:04 iohexol Allergy Mild Hives Unverified 07/22/18 03:04 STATINS AdvReac Intermediate MUSCLE Uncoded 07/22/18 03:04 ACHES Home Medications Medication Instructions Recorded Confirmed Type atenolol 100 mg PO DAILY 07/22/18 07/22/18 History cholecalciferol (vitamin D3) 2,000 unit PO DAILY 07/22/18 07/22/18 History [Vitamin D3] furosemide See Label Instructions .ROUTE 07/22/18 07/22/18 History .COMPLEX glimepiride See Label Instructions .ROUTE 07/22/18 07/22/18 History .COMPLEX lisinopril See Label Instructions .ROUTE 07/22/18 07/22/18 History .COMPLEX Exam Vital signs: Vital Signs 07/22/18 11:45 07/22/18 12:00 07/22/18 12:15 Temperature 98.5 F Pulse Rate 56 L 55 L 54 L Respiratory Rate 27 H 22 24 Blood Pressure 157/78 H 158/78 H 168/73 H Pulse Oximetry 98 99 96 07/22/18 12:30 07/22/18 12:31 07/22/18 12:45 Temperature Pulse Rate 57 L 57 L 64 Respiratory Rate 23 16 22 Blood Pressure 166/77 H 193/87 H Pulse Oximetry 100 100 99 07/22/18 13:00 07/22/18 13:15 07/22/18 13:30 Temperature Pulse Rate 60 65 65 Respiratory Rate 30 H 26 H 19 Blood Pressure 179/71 H 185/72 H 156/70 H Pulse Oximetry 98 99 97 07/22/18 13:45 07/22/18 14:00 07/22/18 14:15 Temperature Pulse Rate 62 61 59 L Respiratory Rate 23 32 H 29 H Blood Pressure 149/65 H 148/68 H 156/73 H Pulse Oximetry 98 97 97 07/22/18 14:31 07/22/18 14:45 07/22/18 15:00 Temperature Pulse Rate 62 58 L 57 L Respiratory Rate 24 23 28 H Blood Pressure 169/77 H 162/76 H 192/77 H Pulse Oximetry 99 98 98 07/22/18 15:15 07/22/18 15:27 07/22/18 15:31 Temperature Pulse Rate 55 L 57 L 59 L Respiratory Rate 27 H 16 19 Blood Pressure 173/77 H 149/65 H Pulse Oximetry 99 100 07/22/18 15:45 07/22/18 16:00 07/22/18 16:15 Temperature 98.5 F Pulse Rate 62 67 65 Respiratory Rate 27 H 32 H 32 H Blood Pressure 175/73 H 186/84 H 172/81 H Pulse Oximetry 96 98 98 07/22/18 16:30 07/22/18 16:45 07/22/18 20:00 Temperature 98.4 F Pulse Rate 62 66 63 Respiratory Rate 31 H 30 H 16 Blood Pressure 175/82 H 179/81 H 150/70 H Pulse Oximetry 97 100 96 07/22/18 22:08 07/23/18 00:00 07/23/18 04:00 Temperature 98.2 F 98.9 F Pulse Rate 64 71 66 Respiratory Rate 18 16 16 Blood Pressure 115/57 L 109/55 L Pulse Oximetry 95 98 95 07/23/18 09:00 Temperature 97.7 F Pulse Rate 70 Respiratory Rate 20 Blood Pressure 137/74 Pulse Oximetry 94 L Intake & Output 07/22/18 07/23/18 07/23/18 18:59 06:59 18:59 Intake Total 1800 / 1800 400 / 400 500 / 500 Output Total 5600 / 5600 4820 / 4820 700 / 700 Balance -3800 / -3800 -4420 / -4420 -200 / -200 Intake: IV 250 / 250 Oral 1800 / 1800 400 / 400 250 / 250 Output: Urine 3000 / 3000 4500 / 4500 Urine Amount (Catheter) 2600 / 2600 320 / 320 700 / 700 Indwelling Urethral Catheter 2600 / 2600 320 / 320 700 / 700 Narrative: GENERAL: AO x 3, pleasant, obese, comfortable SKIN: Warm and dry. HEAD: Atraumatic. Normocephalic. EYES: Pupils equal and round. No scleral icterus. No injection or drainage. ENT: No nasal bleeding or discharge. Mucous membranes pink and moist. NECK: Trachea midline. No JVD. CARDIOVASCULAR: Regular rate and rhythm. RESPIRATORY: No accessory muscle use. Clear to auscultation. Breath sounds equal bilaterally. GASTROINTESTINAL: Abdomen soft, non-tender, nondistended. Hepatic and splenic margins not palpable. MUSCULOSKELETAL: Extremities without clubbing, cyanosis, or edema. No obvious deformities. NEUROLOGICAL: Awake and alert. No obvious cranial nerve deficits. Normal speech. PSYCHIATRIC: Appropriate mood and affect; insight and judgment normal. Results 07/23/18 03:00 07/23/18 03:00 Cardiac Enzymes 07/22/18 07/22/18 07/22/18 Range/Units 10:56 17:00 23:26 Troponin I 0.03 0.03 Less than 0.02 L (0.02-0.05) ng/mL CBC 07/23/18 Range/Units 03:00 WBC 8.4 (4.0-11.0) th/mm3 RBC 4.43 (4.00-5.30) mil/mm3 Hgb 12.0 (11.6-15.3) gm/dL Hct 36.2 (35.0-46.0) % Plt Count 269 (150-450) th/mm3 Neut # (Auto) 6.2 (1.8-7.7) th/mm3 Lymph # (Auto) 1.5 (1.0-4.8) th/mm3 [place] # (Auto) 0.5 (0.0-0.9) th/mm3 Eos # (Auto) 0.1 (0.0-0.4) th/mm3 Baso # (Auto) 0.1 (0.0-0.2) th/mm3 Comprehensive Metabolic Panel 07/23/18 Range/Units 03:00 Sodium 138 (136-145) meq/L Potassium 2.7 L* D (3.5-5.1) meq/L Chloride 95 L D (98-107) meq/L Carbon Dioxide 30.9 (21.0-32.0) meq/L BUN 23 H (7-18) mg/dL Creatinine 1.08 H (0.50-1.00) mg/dL Calcium 8.7 (8.5-10.1) mg/dL Intake and Output 07/22/18 07/23/18 07/23/18 22:59 06:59 14:59 Intake Total 1200 / 1200 400 / 400 500 / 500 Output Total 4200 / 4200 4620 / 4620 700 / 700 Balance -3000 / -3000 -4220 / -4220 -200 / -200 Intake: IV 250 / 250 Oral 1200 / 1200 400 / 400 250 / 250 Output: Urine 3000 / 3000 4500 / 4500 Urine Amount (Catheter) 1200 / 1200 120 / 120 700 / 700 Indwelling Urethral Catheter 1200 / 1200 120 / 120 700 / 700 Assessment and Plan - Plan Assessment: Hypertensive Emergency Flash pulmonary edema, currently resolved Chronic hypertension CAD s/p prior PCI LCx and RCA 05/11/14 DM, poorly controlled HLD Obesity Recommendation: replete K+ >4 today with repeat bmp would change lasix to 20mg po daily upon d/c and repeat outpatient bmp in 2 weeks, prior to follow up evaluation with primary business education professor, Dr Jimmie Mcguire. Start Amlodipine 5mg daily Continue home Atenolol 100mg daily and Lisinopril 10mg daily Counseling for low sodium, heart healthy diet, exercise and weight loss provided. ok from cardiac standpoint to discharge when electrolytes repleted will sign off. call with further questions.
[2018-07-23] MEDS ORDERED: Lisinopril 10 MG Tablet PO SCH (13:18)
--- NOTE | 2018-07-23 17:23 | ECG ---
Date Performed: 07/22/2018 Time Performed: 09:07:31 PTAGE: 63 years EKG: Sinus rhythm WITH OCCASIONAL VENTRICULAR PREMATURE COMPLEXES WITH OCCASIONAL SUPRAVENTRICULAR PREMATURE COMPLEXES LEFT VENTRICULAR HYPERTROPHY AND ST-T CHANGE ABNORMAL ECG PREVIOUS TRACING : 07/22/2018 03.14 DOCTOR: Mary Charles Interpretating Date/Time 07/23/2018 17:21:12
--- NOTE | 2018-07-23 17:30 | ECG ---
Date Performed: 07/22/2018 Time Performed: 03:14:51 PTAGE: 63 years EKG: Sinus rhythm POSSIBLE LEFT ATRIAL ENLARGEMENT POSSIBLE LEFT VENTRICULAR HYPERTROPHY NONSPECIFIC ST & T-WAVE ABNOR MALITY ABNORMAL ECG PREVIOUS TRACING : 01/28/2016 06.45 DOCTOR: Mary Charles Interpretating Date/Time 07/23/2018 17:27:16
[2018-07-23] MEDS: Glimepiride 2 MG Tablet PO SCH (17:47)
[2018-07-23] MEDS: Lisinopril 20 MG Tablet PO SCH (22:28)
[2018-07-24] MEDS: Insulin NovoLIN Regular Correctional Sugar Inj SQ SCH ×5 (05:00→22:13)
[2018-07-24] MEDS: Chlorhexidine Gluconate 2% 1 Pack (2 Cloths) TOPICAL SCH (05:00)
[2018-07-24] MEDS: Levothyroxine 150 MCG Tablet PO SCH (05:00)
[2018-07-24 07:21] LABS: Calcium 9.1 mg/dL (8.5-10.1); Carbon Dioxide 28.2 meq/L (21.0-32.0); Potassium 4.2 meq/L (3.5-5.1)
[2018-07-24] MEDS: Glimepiride 2 MG Tablet PO SCH ×2 (08:38→17:21)
[2018-07-24] MEDS: Lisinopril 20 MG Tablet PO SCH ×2 (08:38→22:14)
[2018-07-24] MEDS: Atenolol 100 MG Tablet PO SCH (08:38)
[2018-07-24] MEDS: Famotidine 20 MG Tablet PO SCH ×2 (08:39→22:13)
[2018-07-24] MEDS: Senna/Docusate Sodium 8.6/50 MG Tablet PO SCH ×2 (08:39→22:14)
[2018-07-24] MEDS ORDERED: amLODIPine 10 MG Tablet PO STA (11:09)
--- NOTE | 2018-07-24 11:31 | P.PNIM ---
Subjective Interval history: pt eager to go home on room air ambulating not sob Physical Exam Vital signs: Vital Signs 07/23/18 12:00 07/23/18 15:39 07/23/18 20:00 Temperature 97.7 F 98.3 F Pulse Rate 82 82 78 Respiratory Rate 20 20 18 Blood Pressure 134/70 119/55 L Pulse Oximetry 92 L 91 L 07/23/18 20:07 07/23/18 20:09 07/24/18 00:00 Temperature 98.4 F Pulse Rate 82 71 Respiratory Rate 20 18 Blood Pressure 143/70 H Pulse Oximetry 98 93 L 07/24/18 04:00 07/24/18 08:00 07/24/18 09:12 Temperature 97.8 F 97.7 F Pulse Rate 69 68 Respiratory Rate 17 14 Blood Pressure 153/80 H 158/72 H Pulse Oximetry 95 96 96 Intake & Output 07/23/18 07/24/18 07/24/18 18:59 06:59 18:59 Intake Total 1300 / 1300 Output Total 700 / 700 Balance 600 / 600 Weight 94.8 kg Intake: IV 250 / 250 Oral 1050 / 1050 Output: Urine Amount (Catheter) 700 / 700 Indwelling Urethral Catheter 700 / 700 Other: # Voids 5 5 Date of Last Bowel Movement 07/23/18 07/24/18 # Bowel Movements 1 1 heart reg lung cta abd s/nt ext no edema - Urinary Catheter Management Indwelling Urethral Catheter Cath placed during this visit: yes, but has since been removed by the nurse Reason for continuing: Decision to DC catheter Insertion date: 07/22/18 Insertion time: 03:33 Removal date: 07/23/18 Removal time: 05:00 Results - Labs CBC & Chem 7: 07/23/18 03:00 07/24/18 05:37 Laboratory Results - last 24 hr 07/23/18 07/23/18 07/23/18 11:36 15:46 16:48 Sodium Potassium 3.7 D Chloride Carbon Dioxide Anion Gap BUN Creatinine Estimated GFR POC Glucose 286 H 150 H Random Glucose Calcium 07/23/18 07/24/18 07/24/18 22:24 04:59 05:37 Sodium 138 Potassium 4.2 Chloride 100 Carbon Dioxide 28.2 Anion Gap 10 BUN 36 H Creatinine 1.14 H Estimated GFR 48 L POC Glucose 226 H 132 H Random Glucose 146 H Calcium 9.1 07/24/18 08:07 Sodium Potassium Chloride Carbon Dioxide Anion Gap BUN Creatinine Estimated GFR POC Glucose 153 H Random Glucose Calcium Assessment and Plan - Assessment (1) Hypertensive emergency Code(s): I16.1 - Hypertensive emergency Status: Acute Plan: 1. htn emergency with acute pulmonary edema/respiratory distress. Pt admits to drinking a case of water for a cleanse diet. She began to swell up and get a h/a. She previously took lasix on prn basis but began taking 2 days prior to admission. Pt was admitted to ICU. agressively diuresed and bp brought under control. she is now on room air. overnight on medical unit. no problems. bp trending back up and cardiology recommending dc on amlodipine in addition to home meds lisinipril and atenolol. pt also using lasix recheck bp prior to dc today. (2) Pulmonary edema Code(s): J81.1 - Chronic pulmonary edema Status: Acute
--- NOTE | 2018-07-24 14:40 | ECG ---
Date Performed: 07/22/2018 Time Performed: 12:38:38 PTAGE: 63 years EKG: SINUS BRADYCARDIA WITH OCCASIONAL VENTRICULAR PREMATURE COMPLEXES LEFT VENTRICULAR HYPERTRO PHY AND ST-T CHANGE ABNORMAL ECG PREVIOUS TRACING : 07/22/2018 09.07 Compared to previous tracing, ST-T wave changes are slightl y more prominent and hear rate is slower. DOCTOR: Jaswant Joaquin Interpretating Date/Time 07/24/2018 14:39:06
[2018-07-25] MEDS: Insulin NovoLIN Regular Correctional Sugar Inj SQ SCH ×7 (01:12→23:32)
[2018-07-25] MEDS: Chlorhexidine Gluconate 2% 1 Pack (2 Cloths) TOPICAL SCH (04:37)
[2018-07-25] MEDS: Levothyroxine 150 MCG Tablet PO SCH (05:38)
[2018-07-25 07:44] LABS: Potassium 4.3 meq/L (3.5-5.1)
[2018-07-25 07:45] LABS: Calcium 8.6 mg/dL (8.5-10.1); Carbon Dioxide 24.3 meq/L (21.0-32.0); Phosphorus 3.4 mg/dL (2.5-4.9)
--- NOTE | 2018-07-25 08:29 | P.PNCA ---
Subjective Interval history: Patient had an episode yesterday where she broke out and sweating and it was associated with slightly wide complex tachyarrhythmia, rate approximately 140, lasting a few seconds before spontaneously resolving. She denies any chest pain , shortness of breath, lightheadedness, dizziness, palpitations. Lower extremity swelling has resolved. Physical Exam Vital signs: Vital Signs 07/24/18 09:12 07/24/18 12:00 07/24/18 13:45 Temperature 97.8 F Pulse Rate 62 56 L Respiratory Rate 14 18 Blood Pressure 177/81 H 182/79 H Pulse Oximetry 96 96 95 07/24/18 16:00 07/24/18 20:00 07/25/18 00:00 Temperature 98.1 F 97.3 F L 97.6 F Pulse Rate 60 54 L 52 L Respiratory Rate 18 16 16 Blood Pressure 179/84 H 114/55 L 125/68 Pulse Oximetry 97 92 L 93 L 07/25/18 04:00 Temperature 97.7 F Pulse Rate 57 L Respiratory Rate 16 Blood Pressure 121/58 L Pulse Oximetry 97 Intake & Output 07/24/18 07/25/18 07/25/18 18:59 06:59 18:59 Intake Total 1200 / 1200 Balance 1200 / 1200 Weight 210 lb 12.191 oz Intake: Oral 1200 / 1200 Other: # Voids 5 2 Date of Last Bowel Movement 07/24/18 # Bowel Movements 1 Narrative: GENERAL: Well-developed well-nourished. In no acute distress. NECK: No carotid bruits. No JVD. CARDIOVASCULAR: Regular rate and rhythm. No murmur appreciated. RESPIRATORY: No accessory muscle use. Clear to auscultation. Breath sounds equal bilaterally. MUSCULOSKELETAL: No clubbing or cyanosis. No edema. NEUROLOGICAL: Awake and alert. Normal speech. - Urinary Catheter Management Indwelling Urethral Catheter Cath placed during this visit: yes, but has since been removed by the nurse Reason for continuing: Decision to DC catheter Insertion date: 07/22/18 Insertion time: 03:33 Removal date: 07/23/18 Removal time: 05:00 Assessment and Plan - Plan 63-year-old female who presented with hypertensive emergency and flash pulmonary edema which is currently improved. We were reconsulted for tachyarrhythmia. Tachyarrhythmia: SVT vs A flutter? Continue beta-ernesto. Discussed Condition With: Patient, hospitalist, Dr. Payne - Attending Attestation hypertensive urgency - BP improved. pulm edema - secondary to uncontrolled BP wide complex tachycardia - SVT with aberrancy. Normal EF. asymptomatic. No further inpatient workup necessary. Outpatient holter monitor. Ok for DC FU dr. carrillo
[2018-07-25] MEDS: Famotidine 20 MG Tablet PO SCH ×2 (09:07→21:15)
[2018-07-25] MEDS: Lisinopril 20 MG Tablet PO SCH ×2 (09:08→21:18)
[2018-07-25] MEDS: Senna/Docusate Sodium 8.6/50 MG Tablet PO SCH ×2 (09:08→21:15)
[2018-07-25] MEDS: amLODIPine 5 MG Tablet PO SCH (09:08)
[2018-07-25] MEDS: Glimepiride 2 MG Tablet PO SCH ×2 (09:08→19:12)
[2018-07-25] MEDS: Atenolol 100 MG Tablet PO SCH (09:08)
[2018-07-25 11:45] LABS: Creatine Kinase 626 U/L (26-192)
[2018-07-25 11:57] LABS: CKMB Percent 0.2 % (0.0-4.0)
--- NOTE | 2018-07-25 13:09 | ECG ---
Date Performed: 07/25/2018 Time Performed: 11:11:45 PTAGE: 63 years EKG: SINUS BRADYCARDIA WITH OCCASIONAL VENTRICULAR PREMATURE COMPLEXES LEFT VENTRICULAR HYPERTRO PHY AND ST-T CHANGE ABNORMAL ECG PREVIOUS TRACING : 07/22/2018 12.38 Since the previous tracing, no significant change noted DOCTOR: Evin Campos Interpretating Date/Time 07/25/2018 13:07:44
--- NOTE | 2018-07-25 13:14 | P.PNIM ---
Subjective Interval history: Pt had 5 minute episode of chest pressure this AM. pt denies palpitations, SOB, n/v, or diaphoresis. Physical Exam Vital signs: 07/25/18 12:00 Temperature 98.0 F Pulse Rate 57 L Respiratory Rate 16 Blood Pressure 165/76 H Pulse Oximetry 93 L Narrative: GENERAL: Well-developed well-nourished. In no acute distress. NECK: No carotid bruits. No JVD. CARDIOVASCULAR: Regular rate and rhythm. No murmur appreciated. RESPIRATORY: No accessory muscle use. Clear to auscultation. Breath sounds equal bilaterally. MUSCULOSKELETAL: No clubbing or cyanosis. No edema. NEUROLOGICAL: Awake and alert. Normal speech. - Urinary Catheter Management Indwelling Urethral Catheter Cath placed during this visit: yes, but has since been removed by the nurse Reason for continuing: Decision to DC catheter Insertion date: 07/22/18 Insertion time: 03:33 Removal date: 07/23/18 Removal time: 05:00 Results - Labs CBC & Chem 7: 07/23/18 03:00 07/25/18 06:03 - Imaging Venous Doppler Study 07/22/18 00:00 CONCLUSION: 1. Negative for deep venous thrombosis. Chest X-Ray 07/22/18 03:14 CONCLUSION: Spectrum of findings characteristic of some degree of vascular congestion or volume overload. No confluent infiltrate. Head CT 07/22/18 19:13 CONCLUSION: 1. No acute findings in the brain. 2. Abnormal appearance to the right frontal craniotomy site with multiple small collections of gas in the soft tissues of the unroofed frontal calvarium. This is of uncertain significance and, without prior studies to see whether this is a new or old finding. Correlate with clinical exam to see if there is evidence of infection in this region. . Assessment and Plan - Assessment (1) Hypertensive emergency Code(s): I16.1 - Hypertensive emergency Status: Acute Plan: 1. htn emergency with acute pulmonary edema/respiratory distress. Pt admits to drinking a case of water for a cleanse diet. She began to swell up and get a h/a. She previously took lasix on prn basis but began taking 2 days prior to admission. Pt was admitted to ICU. agressively diuresed and bp brought under control. - appreciate input from Cardiology - obtain 24 hour holter - obtain serial Aniyah and serial EKGs - obtain lexiscan 8/28 - anticipate d/c to home 07/27 - SCDs for DVT prophylaxis - supportive care (2) Pulmonary edema Code(s): J81.1 - Chronic pulmonary edema Status: Acute
[2018-07-25 18:09] LABS: Creatine Kinase 739 U/L (26-192)
[2018-07-25 18:23] LABS: CKMB Percent 0.1 % (0.0-4.0)
[2018-07-26] MEDS: Chlorhexidine Gluconate 2% 1 Pack (2 Cloths) TOPICAL SCH (03:28)
[2018-07-26] MEDS: Levothyroxine 150 MCG Tablet PO SCH (05:25)
[2018-07-26] MEDS: Insulin NovoLIN Regular Correctional Sugar Inj SQ SCH ×5 (05:25→21:59)
[2018-07-26] MEDS: Senna/Docusate Sodium 8.6/50 MG Tablet PO SCH ×2 (08:34→21:50)
[2018-07-26] MEDS: Lisinopril 20 MG Tablet PO SCH ×2 (08:35→21:50)
[2018-07-26] MEDS: Famotidine 20 MG Tablet PO SCH ×2 (08:36→21:50)
[2018-07-26] MEDS: amLODIPine 5 MG Tablet PO SCH (08:36)
[2018-07-26] MEDS: Atenolol 100 MG Tablet PO SCH (08:36)
[2018-07-26] MEDS: Glimepiride 2 MG Tablet PO SCH ×2 (08:36→18:29)
[2018-07-26] MEDS ORDERED: Regadenoson Inj 0.4 MG/5 ML Syringe IV.PUSH ONE (15:17)
--- NOTE | 2018-07-26 16:14 | ECG ---
Date Performed: 07/25/2018 Time Performed: 17:00:01 PTAGE: 63 years EKG: SINUS BRADYCARDIA WITH SINUS ARRHYTHMIA LEFT VENTRICULAR HYPERTROPHY AND ST-T CHANGE Since the previous tracing, no significant change noted ABNORMAL ECG PREVIOUS TRACING : 07/25/2018 11.11 DOCTOR: Arun Agrawal Interpretating Date/Time 07/26/2018 16:12:07
--- NOTE | 2018-07-26 17:24 | NM ---
EXAM DATE: 07/26/2018 5:19 PM EDT AGE/SEX: 63 years / Female INDICATIONS:Angina. . Diaphoresis and tachycardia. CLINICAL DATA: This is the patient's initial encounter. Patient reports that signs and symptoms have been present for 1 day and indicates a pain score of 7/10. MEDICAL/SURGICAL HISTORY: Carcinoma, breast. Diabetes mellitus type II. Hypertension. Coronar y artery stent. Appendectomy. Tubal ligation. Right lumpectomy. Laminectomy. COMPARISON: No prior exams available for comparison. DOSE: 8.5 mCi Tc 99m Myoview at rest 27.2 mCi [id number] at stress 0.4 mg Lexiscan STRESS SYMPTOMS: Asymptomatic. EJECTION FRACTION: 42 % TECHNIQUE: The patient underwent pharmacologic stress with infusion of prescribed dose. Continuous ECG tracing was monitored during stress. Gated SPECT imaging was performed after stress and conventi onal SPECT imaging was performed at rest. The examination was performed on a SPECT/CT scanner, both attenuation and non-corrected datasets were reviewed. FINDINGS: Distribution: The maximum perfused segment at stress is in the anterior wall. Perfusion Study: There are no reversible perfusion defects identified however mild decreased perfus ion is seen throughout. Gated Study: Global hypokinesis. The ejection fraction is calculated at 42%. RISK CATEGORY: Intermediate (1-3 % Annual Mortality Rate) CONCLUSION: 1. No reversible perfusion defects are identified at this time. 2. Global hypokinesis with EF of 42%. Electronically signed by: Evaristo Davidson MD 07/26/2018 5:22 PM EDT
--- NOTE | 2018-07-26 22:25 | P.DS ---
Date of admission: 07/22/18 04:32 Primary care physician: Afshin Rainey MD, PhD Attending physician on discharge: Lazarus Dale Anticipated date of discharge: 07/26/18 Brief History from admission: 63-year-old female with past medical history of coronary artery disease with prior PTCA and stent Circ and RCA 05/11/14, poorly controlled DM, HTN, HLD, hypothyroidism, prior breast cancer status post lumpectomy and radiation 2005, prior meningioma resection 1984, who presented to [facility] emergency department with shortness of breath. She states she awoke from sleep with throbbing headache, top of head without neck pain, stiffness or visual changes. She took two ibuprofen. She states she then became short of breath with associated chest pressure in her mid chest ( nonradiating, nonpleuritic, similar quality to when she had prior stents), nausea, diaphoresis. She was brought by private vehicle and arrived with sats 82% on room air, bilateral rales, tachypneic and in obvious distress. She was placed on BiPAP 12/5 35%. She was started on nitroglycerin drip which is currently running at 50 mcg/min with BP 220s/90s. CXR demonstrated cardiomegaly and vascular congestion. She was given Lasix 40 mg IV and has diuresed 600 mL, states SOB is better and will trial off Bipap. She initially said her headache was gone, now says it is returning somewhat. She has intermittently had coughing every few months and has been prescribed antibiotics from her primary. No prior diagnosis of CHF or COPD, no prior PFTs. She states she had some cough this evening, productive of clear/white frothy sputum. No fever. Troponin negative. EKG no STEMI. No cardiac workup in many years and no reported history of CHF. She has noticed leg swelling for about a week, has been taking lasix, also drinking about a gallon of water daily "to be healthy" after stopping soda. No travel. DS: Diagnosis - Discharge Diagnosis (1) Hypertensive emergency Status: Acute (2) Pulmonary edema Status: Acute DS: Medications - Discharge Medications Prescriptions: amlodipine [Norvasc] 5 mg PO DAILY 30 Days #30 tab DS: Summary Hospital Course: (1) Hypertensive emergency Code(s): I16.1 - Hypertensive emergency Status: Acute Plan: 1. htn emergency with acute pulmonary edema/respiratory distress. Pt admits to drinking a case of water for a cleanse diet. She began to swell up and get a h/a. She previously took lasix on prn basis but began taking 2 days prior to admission. Pt was admitted to ICU. agressively diuresed and bp brought under control. - appreciate input from Cardiology - 24 hour holter --> results pending - Pt c/o episode of chest pain 08/25/18 - serial Aniyah --> negative - serial EKGs --> no acute ischemic changes - lexiscan 07/26 --> awaiting results - results NOT available until late 07/26/18 - No reversible perfusion defects - d/c to home 07/27 - see discharge orders - f/u with PCP in one week - f/u with Cardiology in one week (2) Pulmonary edema Code(s): J81.1 - Chronic pulmonary edema Status: Acute - see above - Time Spent with Patient Total time spent providing and/or coordinating discharge services: Greater than 30 minutes - Quality: VTE Deep Vein Thrombosis/Pulmonary Embolism Present on Admission: No Exam Vital signs: Vital Signs 07/25/18 23:32 07/26/18 00:33 07/26/18 04:58 Temperature 97.3 F L 97.6 F Pulse Rate 52 L 48 L 53 L Respiratory Rate 17 18 Blood Pressure 137/87 144/70 H Pulse Oximetry 97 98 07/26/18 07:50 07/26/18 12:00 07/26/18 16:00 Temperature 97.9 F 98.0 F 97.4 F L Pulse Rate 51 L 45 L 51 L Respiratory Rate 17 16 16 Blood Pressure 148/78 H 172/74 H 192/84 H Pulse Oximetry 97 97 96 07/26/18 20:00 Temperature 97.1 F L Pulse Rate 51 L Respiratory Rate 18 Blood Pressure 149/62 H Pulse Oximetry 94 L Intake & Output 07/26/18 07/26/18 07/27/18 06:59 18:59 06:59 Intake Total 780 / 780 620 / 620 Balance 780 / 780 620 / 620 Weight 95 kg Intake: Oral 780 / 780 620 / 620 Other: # Voids 2 4 Date of Last Bowel Movement 07/25/18 07/26/18 # Bowel Movements 1 Results Procedures completed during hospitalization: n/a Labs on day of discharge: Labs from last 24 hours 07/26/18 07/26/18 07/26/18 21:53 15:58 13:47 POC Glucose 241 H 90 72 07/26/18 07/26/18 07/26/18 11:08 07:35 04:49 POC Glucose 97 84 95 07/25/18 23:28 POC Glucose 129 H - Impressions ITS Impressions Venous Doppler Study 07/22/18 00:00 CONCLUSION: 1. Negative for deep venous thrombosis. Chest X-Ray 07/22/18 03:14 CONCLUSION: Spectrum of findings characteristic of some degree of vascular congestion or volume overload. No confluent infiltrate. Head CT 07/22/18 19:13 CONCLUSION: 1. No acute findings in the brain. 2. Abnormal appearance to the right frontal craniotomy site with multiple small collections of gas in the soft tissues of the unroofed frontal calvarium. This is of uncertain significance and, without prior studies to see whether this is a new or old finding. Correlate with clinical exam to see if there is evidence of infection in this region. . Myocardial Perfusion Scan Nuc Med 07/26/18 08:00 CONCLUSION: 1. No reversible perfusion defects are identified at this time. 2. Global hypokinesis with EF of 42%. Discharge Plan - Discharge Disposition Patient Disposition: 01 Discharge Home - Discharge Condition Condition: Stable - Discharge Order Discharge Orders: Discharge Order (Routine); Ordered 07/27/18 Ordered By: Lazarus Dale Cardiology Clear for Discharge (Routine); Ordered 07/25/18 Ordered By: Wilberto Payne - Discharge Details Anticipated Discharge Date: 07/26/18 Discharge Comment: Followup with Dr. Rainey within 1 week, call for that appt - Physicians Team Primary Care Provider: Afshin Rainey Attending Provider: Naa Gould Other Providers: Oswald Albright MD
[2018-07-27] MEDS: Insulin NovoLIN Regular Correctional Sugar Inj SQ SCH ×3 (00:32→09:53)
[2018-07-27] MEDS: Chlorhexidine Gluconate 2% 1 Pack (2 Cloths) TOPICAL SCH (04:09)
[2018-07-27] MEDS: Levothyroxine 150 MCG Tablet PO SCH (05:12)
[2018-07-27] MEDS: Glimepiride 2 MG Tablet PO SCH (09:51)
[2018-07-27] MEDS: amLODIPine 5 MG Tablet PO SCH (09:51)
[2018-07-27] MEDS: Lisinopril 20 MG Tablet PO SCH (09:51)
[2018-07-27] MEDS: Famotidine 20 MG Tablet PO SCH (09:52)
[2018-07-27] MEDS: Atenolol 100 MG Tablet PO SCH (09:52)
[2018-07-27] MEDS: Senna/Docusate Sodium 8.6/50 MG Tablet PO SCH (09:53)
--- NOTE | 2018-07-27 10:02 | P.PNIM ---
Subjective Interval history: No new complaints. Pt is eager for discharge to home. Physical Exam Vital signs: 07/27/18 00:00 07/27/18 04:00 Temperature 97.4 F L 98.1 F Pulse Rate 43 L 50 L Respiratory Rate 18 18 Blood Pressure 157/71 H 167/70 H Pulse Oximetry 97 96 Narrative: GENERAL: Well-developed well-nourished. In no acute distress. NECK: No carotid bruits. No JVD. CARDIOVASCULAR: Regular rate and rhythm. No murmur appreciated. RESPIRATORY: No accessory muscle use. Clear to auscultation. Breath sounds equal bilaterally. MUSCULOSKELETAL: No clubbing or cyanosis. No edema. NEUROLOGICAL: Awake and alert. Normal speech. - Urinary Catheter Management Indwelling Urethral Catheter Cath placed during this visit: yes, but has since been removed by the nurse Reason for continuing: Decision to DC catheter Insertion date: 07/22/18 Insertion time: 03:33 Removal date: 07/23/18 Removal time: 05:00 Results - Labs CBC & Chem 7: 07/23/18 03:00 07/25/18 06:03 - Imaging Myocardial Perfusion Scan Nuc Med 07/26/18 08:00 CONCLUSION: 1. No reversible perfusion defects are identified at this time. 2. Global hypokinesis with EF of 42%. Assessment and Plan - Assessment (1) Hypertensive emergency Code(s): I16.1 - Hypertensive emergency Status: Acute Plan: 1. htn emergency with acute pulmonary edema/respiratory distress. Pt admits to drinking a case of water for a cleanse diet. She began to swell up and get a h/a. She previously took lasix on prn basis but began taking 2 days prior to admission. Pt was admitted to ICU. agressively diuresed and bp brought under control. - appreciate input from Cardiology - atenolol 100mg Daily - lisinopril 20mg BID - norvasc 5mg daily - 24 hour holter --> results pending - Pt c/o episode of chest pain 08/25/18 - serial Aniyah --> negative - serial EKGs --> no acute ischemic changes - lexiscan 07/26 --> awaiting results - results NOT available until late 07/26/18 - No reversible perfusion defects - d/c to home - see discharge orders - f/u with PCP in one week - f/u with Cardiology in one week - repeat BP reading taken by undersigned: 158/80 - pt instructed to keep home BP log & present to PCP at f/u appointment - pt to maintain low sodium diet. (2) Pulmonary edema Code(s): J81.1 - Chronic pulmonary edema Status: Acute - see above 3) DM2, unspecified complications - SSI - stable on OHA (2) Pulmonary edema Code(s): J81.1 - Chronic pulmonary edema Status: Acute
--- NOTE | 2018-07-27 22:01 | HM ---
Date Performed: 07/25/2018 Time Performed: 10:24:00 HOOKUP DATE: 07/25/18 10:24:00 AM Mon ANALYSIS START TIME: 07/25/2018 10:29:00 AM ANALYSIS END TIME: 07/26/2018 10:33:00 AM PATIENT AGE: 63 PATIENT HEIGHT: 66 PATIENT WEIGHT: 210 DRUG LIST: ROOM 1729 PATIENT DIAGNOSIS: ACUTE CARDIOMYOPATHY TEST NARRATIVE: The patient's average heart rate was 51 BPM. No episodes of tachycardia wer e noted. Heart rates less than 50 BPM were noted 78% of the time. No pauses exceeding 2.0 second s were noted. 1519 ventricular ectopics, which represented 2% of the total beat count, were noted . The highest ventricular ectopic frequency occurred from 07:00 AM to 08:00 AM Tue. During this anne e 293 VE(s) occurred. Ventricular ectopics were observed as 1519 isolated beat(s) only. No couplets or runs were noted. 85 supraventricular ectopics, which represented < 1% of the total beat count , were noted. The highest supraventricular ectopic frequency occurred from 11:00 AM to 12:00 PM Mon. During this time 13 SVE(s) occurred. Multiple episodes of ST depression (defined as -1.0 mm or more) were noted in channel 1. The maximum depression of -1.9 mm occurred at 08:35:47 PM Mon. Mult iple episodes of ST depression (defined as -1.0 mm or more) were noted in channel 2. The maximum de pression of -1.5 mm occurred at 11:04:24 PM Mon. Multiple episodes of ST depression (defined as -1.0 mm or more) were noted in channel 3. The maximum depression of -1.7 mm occurred at 10:58:27 PM Mon . NO DIARY ENTRIES WERE RECORDED BY THE PATIENT TEST INTERPRETATION: 1. Predominant underlying rhythm is sinus bradycardia 2. Occasional PACs an d PVCs 3. NO episodes of AFib, SVT or VT noted 4. NO pauses greater than 2 sec noted Signed by : Yaya Cordero
== END 2018-07-27 11:27 | disposition home or self-care (01) ==
LOC: NEPC 02:58 → NEDA 04:32 → HIMC 06:15 → N07 07-23 08:59
PROVIDERS: ADMIT Emergency Medicine; ATTEND Emergency Medicine